=== PATIENT | female | born 2000 | race African-American/Black ===

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

== ENCOUNTER 2021-12-22 15:55 | Emergency (ER) | payer OTHER ==
[~2021-12-22] VITALS: Ht 162.6 cm; Wt 120.0 kg
[2021-12-22 16:18] VITALS: BP 137/80
== END 2021-12-22 20:52 | disposition home or self-care (01) ==
LOC: ER 15:55
DX: Z32.02 Encounter for pregnancy test, result negative (principal)
CPT/HCPCS: 81025; 99282

== ENCOUNTER 2022-01-26 23:00 | Emergency (ER) | payer MEDICAID, OTHER ==
[~2022-01-26] VITALS: Ht 157.5 cm; Wt 114.0 kg
[2022-01-26 23:10] VITALS: BP 152/91
== END 2022-01-27 01:00 | disposition left against medical advice (07) ==
LOC: ER 23:00
DX: Z53.21 Procedure and treatment not carried out due to patient leaving prior to being seen by health care provider (principal)